=== PATIENT | male | born 1980 | race Caucasian/White ===

== ENCOUNTER 2017-07-28 14:14 | Outpatient (CLI) | payer OTHER | END 2017-07-28 14:21 | disposition home or self-care (01) | LOC: RAD 501 14:14 | DX: R05 Cough (principal) ==

== ENCOUNTER 2019-01-17 22:21 | Emergency (ER) | payer OTHER ==
[~2019-01-17] VITALS: Ht 175.3 cm; Wt 63.5 kg
[2019-01-17] MEDS ORDERED: CLARITIN10 M1 PO (23:08)
[2019-01-17] MEDS ORDERED: TUSNEL LIQUID178 ML PO (23:08)
[2019-01-17] MEDS ORDERED: AMOX1TAB5 PO (23:08)
== END 2019-01-17 23:45 | disposition home or self-care (01) ==
LOC: ER 22:21
DX: J06.9 Acute upper respiratory infection, unspecified (principal); R05 Cough; R09.81 Nasal congestion